=== PATIENT | female | born 1985 | race Two or more races ===

== ENCOUNTER 2016-09-03 13:02 | Emergency (ER) | payer MEDICAID ==
[~2016-09-03] VITALS: Ht 149.9 cm; Wt 48.1 kg
[~2016-09-03 13:02] MED LIST: DEPO PROVERA
[2016-09-03 14:20] VITALS: BP 138/82
== END 2016-09-03 15:04 | disposition home or self-care (01) ==
LOC: ER 13:02
DX: N39.0 Urinary tract infection, site not specified (principal)
CPT/HCPCS: 81025

== ENCOUNTER 2018-01-03 09:57 | Observation (INO) | payer MEDICAID ==
[2018-01-03] MEDS ORDERED: FERR27TA2 PO (10:29)
[2018-01-03] MEDS ORDERED: PREN-153 OR (10:29)
== END 2018-01-03 12:50 | disposition home or self-care (01) | DRG 566 ==
LOC: LDRP 09:57
PROVIDERS: ADMIT Specialist; ATTEND Specialist
DX: O48.0 Post-term pregnancy (principal); Z3A.40 40 weeks gestation of pregnancy
CPT/HCPCS: 59025; 76818; 81002; G0378

== ENCOUNTER 2019-11-25 00:24 | Emergency (ER) | payer MEDICAID ==
[~2019-11-25] VITALS: Ht 149.9 cm; Wt 56.7 kg
[~2019-11-25 00:24] MED LIST changes: +FERR27TA2 PO; +PREN-153 OR
[2019-11-25 01:28] LABS: Basophils # (auto) 0 10 ^3/uL (0-0.2); Basophils % (auto) 0.5 % (0.0-2.0); Eosinophils # (auto) 0.1 10 ^3/uL (0-0.8); Eosinophils % (auto) 1.1 % (0.0-7.0); Hematocrit 42.1 % (36.0-46.0); Hemoglobin 14.4 g/dL (12.2-16.2); Lymphocytes # (auto) 2.6 10 ^3/uL (0.4-5.4); Lymphocytes % (auto) 28.2 % (10.0-50.0); Mean Corpuscular Hemoglobin 29.7 pg (28.0-32.0); Mean Corpuscular Hgb Conc. 34.3 g/dL (32.0-36.0); Mean Corpuscular Volume 86.7 fL (80.0-100.0); Monocytes # (auto) 0.5 10 ^3/uL (0-1.3); Monocytes % (auto) 5.8 % (0.0-12.0); Neutrophils # (auto) 5.9 10 ^3/uL (1.6-8.6); Neutrophils % (auto) 64.4 % (37.0-80.0); Platelet Count (auto) 277 10^3/uL (140-450); Red Blood Cells 4.85 10^6/uL (4.0-5.20); Red Cell Distribution Width 15.1 % (11.8-14.3); White Blood Cell 9.2 10^3/uL (4.4-10.8)
[2019-11-25 01:33] LABS: Urine Bacteria FEW /hpf (None Seen); Urine Blood 2+ /uL (Negative); Urine Specific Gravity 1.003 (1.001-1.035); Urine WBC 1 /hpf (0 - 5)
[2019-11-25 01:46] LABS: Albumin 3.7 g/dL (3.4-5.0); Potassium 3.6 mmol/L (3.5-5.1)
[2019-11-25 01:51] LABS: BUN/Creatinine Ratio 21.2; Bilirubin, Total 0.5 mg/dL (0.2-1.0); Total Protein 7.3 g/dL (6.4-8.2)
[2019-11-25] MEDS ORDERED: MORPHINE SULF INJ 2 MG/ML SYRINGE 1ML IV ONE (05:30)
[2019-11-25] MEDS ORDERED: ONDANSETRON HCL 4 MG/2 ML VIAL IV ONE (05:30)
[2019-11-25 06:40] VITALS: BP 123/75
== END 2019-11-25 08:35 | disposition home or self-care (01) ==
LOC: ER 00:28
DX: K59.00 Constipation, unspecified (principal); N83.201 Unspecified ovarian cyst, right side
CPT/HCPCS: 36415; 74176; 80053; 81001; 81025; 83690; 85025; 96374; 96375; 99285; J2270; J2405; J7030

== ENCOUNTER 2020-06-09 12:39 | Emergency (ER) | payer MEDICAID ==
[~2020-06-09] VITALS: Ht 149.9 cm; Wt 57.2 kg
[~2020-06-09 12:39] MED LIST changes: -PREN-153 OR; +PREN1TAB71 OR
[2020-06-09 12:40] VITALS: BP 110/85
[2020-06-09] MEDS ORDERED: PENICILLIN G BENZ 1200000 UNITS/2 ML SYRG IM ONE (14:15)
== END 2020-06-09 14:47 | disposition home or self-care (01) ==
LOC: ER 12:39
DX: O98.112 Syphilis complicating pregnancy, second trimester (principal); Z3A.16 16 weeks gestation of pregnancy
CPT/HCPCS: 96372; 99283; J0561

== ENCOUNTER 2020-06-16 11:43 | Emergency (ER) | payer MEDICAID ==
[~2020-06-16] VITALS: Ht 149.9 cm; Wt 57.6 kg
[2020-06-16] MEDS ORDERED: PENICILLIN G BENZ 1200000 UNITS/2 ML SYRG IM ONE (13:00)
[2020-06-16 13:50] VITALS: BP 126/78
== END 2020-06-16 14:01 | disposition home or self-care (01) ==
LOC: ER 11:43
DX: O98.112 Syphilis complicating pregnancy, second trimester (principal); Z79.899 Other long term (current) drug therapy; Z3A.17 17 weeks gestation of pregnancy
CPT/HCPCS: 96372; 99283; J0561

== ENCOUNTER 2020-11-02 14:14 | Observation (INO) | payer MEDICAID ==
[2020-11-02] MEDS ORDERED: LACTATED RINGER'S 1,000 ML IV ONE (15:30)
[2020-11-02 17:16] LABS: Basophils # (auto) 0 10 ^3/uL (0-0.2); Basophils % (auto) 0.4 % (0.0-2.0); Eosinophils # (auto) 0 10 ^3/uL (0-0.8); Eosinophils % (auto) 0.6 % (0.0-7.0); Hematocrit 32.9 % (36.0-46.0); Hemoglobin 10.6 g/dL (12.2-16.2); Lymphocytes # (auto) 1.6 10 ^3/uL (0.4-5.4); Lymphocytes % (auto) 25.2 % (10.0-50.0); Mean Corpuscular Hemoglobin 23.3 pg (28.0-32.0); Mean Corpuscular Hgb Conc. 32.2 g/dL (32.0-36.0); Mean Corpuscular Volume 72.4 fL (80.0-100.0); Monocytes # (auto) 0.4 10 ^3/uL (0-1.3); Monocytes % (auto) 6.2 % (0.0-12.0); Neutrophils # (auto) 4.2 10 ^3/uL (1.6-8.6); Neutrophils % (auto) 67.6 % (37.0-80.0); Nucleated Red Blood Cells % 0.1 %; Red Blood Cells 4.55 10^6/uL (4.0-5.20); Red Cell Distribution Width 17.7 % (11.8-14.3); White Blood Cell 6.3 10^3/uL (4.4-10.8)
[2020-11-02 17:24] LABS: Urine Bacteria FEW /hpf (None Seen); Urine Blood Negative /uL (Negative); Urine Specific Gravity 1.003 (1.001-1.035); Urine WBC 1 /hpf (0 - 5)
[2020-11-02 17:25] LABS: Albumin 2.6 g/dL (3.4-5.0); Calcium 8.9 mg/dL (8.5-10.1); Potassium 3.5 mmol/L (3.5-5.1); Uric Acid 3.3 mg/dL (2.6-6.0)
[2020-11-02 17:28] LABS: BUN/Creatinine Ratio 11.9; Bilirubin, Total 0.7 mg/dL (0.2-1.0); Total Protein 6.6 g/dL (6.4-8.2)
[2020-11-02 17:31] LABS: INR 0.92 (0.9-1.15); Partial Thromboplastin Time 26.3 sec (23.6-33.0)
[2020-11-02 17:39] LABS: Protein, Urine < 5.0 mg/dL (0.0-11.9)
[2020-11-02 18:50] LABS: Creatinine, Urine < 30.0 mg/dL (30.0-125.0)
[2020-11-03 06:06] LABS: RPR Non Reactive (Non Reactive)
== END 2020-11-02 20:21 | disposition home or self-care (01) ==
LOC: LDRP 14:14
PROVIDERS: ADMIT Obstetrics & Gynecology; ATTEND Obstetrics & Gynecology
DX: O26.893 Other specified pregnancy related conditions, third trimester (principal); L29.9 Pruritus, unspecified; O62.9 Abnormality of forces of labor, unspecified; O13.3 Gestational [pregnancy-induced] hypertension without significant proteinuria, third trimester; Z3A.38 38 weeks gestation of pregnancy; Z79.899 Other long term (current) drug therapy
CPT/HCPCS: 36415; 59025; 76805; 76818; 80053; 81001; 81002; 82570; 82575; 82962; 83036; 84112; 84156; 84550; 85025; 85610; 85730; 86592; 94760; 96360; G0378

== ENCOUNTER 2020-11-05 09:05 | Observation (INO) | payer MEDICAID | END 2020-11-05 12:35 | disposition home or self-care (01) | LOC: LDRP 09:05 | PROVIDERS: ADMIT Obstetrics & Gynecology; ATTEND Obstetrics & Gynecology | DX: O62.9 Abnormality of forces of labor, unspecified (principal); O24.419 Gestational diabetes mellitus in pregnancy, unspecified control; Z3A.38 38 weeks gestation of pregnancy | CPT/HCPCS: 59025; 76818; 81002; 82948; 82962; G0378; G0379 ==

== ENCOUNTER 2020-11-07 04:15 | Inpatient (IN) | payer MEDICAID ==
[~2020-11-07] VITALS: Ht 149.9 cm; Wt 56.7 kg
[2020-11-07] MEDS ORDERED: LIDOCAINE 2%HCL (LOCAL ANESTH.) INJ 20ML MDV IJ PRN (07:15)
[2020-11-07] MEDS ORDERED: WITCH HAZEL-GLYCERIN PAD TOP PRN (07:15)
[2020-11-07] MEDS ORDERED: PHISODERM TOP SOLN 240ML BTL TOP PRN (07:15)
[2020-11-07] MEDS ORDERED: DERMOPLAST 60ML BOTTLE TOP PRN (07:15)
[2020-11-07 08:00] LABS: Basophils # (auto) 0 10 ^3/uL (0-0.2); Eosinophils # (auto) 0 10 ^3/uL (0-0.8); Hemoglobin 10.1 g/dL (12.2-16.2); Lymphocytes # (auto) 1.5 10 ^3/uL (0.4-5.4); Monocytes # (auto) 0.5 10 ^3/uL (0-1.3)
[2020-11-07 08:02] LABS: Basophils % (auto) 0.6 % (0.0-2.0); Eosinophils % (auto) 0.5 % (0.0-7.0); Hematocrit 31.3 % (36.0-46.0); Lymphocytes % (auto) 18.5 % (10.0-50.0); Mean Corpuscular Hemoglobin 23.2 pg (28.0-32.0); Mean Corpuscular Hgb Conc. 32.1 g/dL (32.0-36.0); Monocytes % (auto) 6.2 % (0.0-12.0); Neutrophils # (auto) 5.9 10 ^3/uL (1.6-8.6); Neutrophils % (auto) 74.2 % (37.0-80.0); Red Blood Cells 4.35 10^6/uL (4.0-5.20); Red Cell Distribution Width 17.9 % (11.8-14.3)
[2020-11-07 08:14] LABS: Albumin 2.4 g/dL (3.4-5.0); Calcium 8.7 mg/dL (8.5-10.1); Potassium 3.5 mmol/L (3.5-5.1)
[2020-11-07 08:15] LABS: INR 0.91 (0.9-1.15); Partial Thromboplastin Time 25.9 sec (23.6-33.0)
[2020-11-07 08:16] LABS: Amphetamine Screen, Urine NEGATIVE (NEGATIVE); Barbiturate Scree,Urine NEGATIVE (NEGATIVE); Benzodiazephine Screen, Urine NEGATIVE (NEGATIVE); Cannabinoid Screen, Urine NEGATIVE (NEGATIVE); Cocaine Screen, Urine NEGATIVE (NEGATIVE); Opiate Scree,Urine NEGATIVE (NEGATIVE); Phencyclidine Screen, Urine NEGATIVE (NEGATIVE)
[2020-11-07 08:18] LABS: BUN/Creatinine Ratio 10.5; Bilirubin, Total 0.8 mg/dL (0.2-1.0); Total Protein 6.4 g/dL (6.4-8.2)
[2020-11-07 08:20] LABS: Alcohol, Urine < 3.0 mg/dL (0-10)
[2020-11-07] MEDS: LACTATED RINGER'S 1,000 ML IV SCH ×2 (09:05→14:25)
== END 2020-11-07 18:17 | disposition home or self-care (01) | DRG 566 ==
LOC: LDRP 04:15 → OBSVTOIN 07:01 → LDRP 07:02
PROVIDERS: ADMIT Obstetrics & Gynecology Obstetrics; ATTEND Obstetrics & Gynecology Obstetrics
DX: O98.013 Tuberculosis complicating pregnancy, third trimester (principal); J98.4 Other disorders of lung; Z20.822 Contact with and (suspected) exposure to COVID-19; Z3A.36 36 weeks gestation of pregnancy; Z22.7 Latent tuberculosis; Z86.32 Personal history of gestational diabetes
CPT/HCPCS: 36415; 59025; 71045; 71250; 80053; 80307; 81002; 82948; 82962; 84112; 85025; 85610; 85730; 86850; 86900; 86901; 87426; 94760; 96360; 96361; G0378